=== PATIENT | female | born 1965 | race Two or more races ===

== ENCOUNTER 2019-06-17 09:30 | Day surgery (SDC) | payer MEDICARE ==
[~2019-06-17] VITALS: Ht 144.8 cm; Wt 103.8 kg
[~2019-06-17 09:30] MED LIST: CYCL5TAB PO; FURO40TA6 PO; POTA20TA89 PO
[2019-06-17] MEDS ORDERED: LACTATED RINGERS 1,000 ML IV SCH (10:29)
[2019-06-17 10:31] VITALS: BP 128/86
[2019-06-17] MEDS ORDERED: LIDOCAINE-MPF 1%, 2ML ONE (10:31)
[2019-06-17] MEDS ORDERED: CHOL500050 PO (10:38)
[2019-06-17] MEDS ORDERED: IBUP-1223 PO (10:38)
[2019-06-17] MEDS ORDERED: TRAM50TA2 PO (10:38)
[2019-06-17] MEDS ORDERED: ALEN70TA6 PO (10:38)
[2019-06-17] MEDS ORDERED: PLEASE ENTER HEIGHT AND WEIGHT MC SCH (11:00)
[2019-06-17] MEDS ORDERED: LIDOCAINE-MPF 1%, 2ML INFIL ONE (11:00)
[2019-06-17] MEDS ORDERED: PROPOFOL 10 MG/ML, 50ML ONE (12:33)
== END 2019-06-17 15:40 | disposition home or self-care (01) ==
LOC: OUT 09:30
PROVIDERS: ATTEND Internal Medicine
DX: Z12.11 Encounter for screening for malignant neoplasm of colon (principal); D12.2 Benign neoplasm of ascending colon; D12.4 Benign neoplasm of descending colon; D12.3 Benign neoplasm of transverse colon; G47.33 Obstructive sleep apnea (adult) (pediatric); M19.90 Unspecified osteoarthritis, unspecified site; E66.01 Morbid (severe) obesity due to excess calories; Z68.43 Body mass index [BMI] 50.0-59.9, adult; Z79.1 Long term (current) use of non-steroidal anti-inflammatories (NSAID); Z79.891 Long term (current) use of opiate analgesic; Z79.899 Other long term (current) drug therapy; Z99.81 Dependence on supplemental oxygen; Z80.0 Family history of malignant neoplasm of digestive organs
CPT/HCPCS: 45385; 88305; J2704; J7120